=== PATIENT | female | born 1940 | race American Indian/Alaskan Native ===

== ENCOUNTER 2018-12-28 11:46 | Day surgery (SDC) | payer MEDICARE ==
[2018-12-28] MEDS ORDERED: DIPRIVAN 10 MG/ML IV ONE (12:11)
--- NOTE | 2018-12-28 12:26 | Anesthesia Day of Surgery ---
Anesthesia Day of Surgery - Day of Surgery Patient Examined: Yes Patient H&P Reviewed: Yes Patient is NPO: Yes
--- NOTE | 2018-12-28 12:26 | Anesthesia Consultation ---
Anesthesia Consult and Med Hx Date of service: 12/28/18 - Airway Anesthetic Teeth Evaluation: Edentulous ROM Head & Neck: Inadequate Mental/Hyoid Distance: Inadequate Mallampati Class: Class III Intubation Access Assessment: Possibly Difficult - Pulmonary Exam CTA: Yes - Cardiac Exam Cardiac Exam: RRR - Pre-Operative Health Status ASA Pre-Surgery Classification: ASA4 Proposed Anesthetic Plan: MAC - Pulmonary Hx Smoking: Yes (FORMER SMOKER) Hx Respiratory Symptoms: No Home Oxygen Therapy: Yes (2L) - Cardiovascular System Hx Hypertension: Yes Hx Coronary Artery Disease: Yes (s/p stents 2009) Hx Cardia Arrhythmia: Yes (a-fib) - Central Nervous System CVA: No - Gastrointestinal Hx Gastroesophageal Reflux Disease: No - Endocrine Hx Renal Disease: No Hx Liver Disease: No Hx Non-Insulin Dependent Diabetes: Yes Hx Hypothyroidism: Yes - Hematic Hx Anemia: Yes - Other Systems Hx Obesity: Yes - Additional Comments Anesthesia Medical History Comments: Last dose ASA 12/27. Last dose coumadin 12/07. No hx anesthetic complications. Anesthesia consent obtained from family at bedside. PEG placement for poor PO intake.
[2018-12-28] MEDS ORDERED: TRIPLE ANTIBIOTIC TP ONE (12:59)
[2018-12-28] MEDS ORDERED: XYLOCAINE MPF 2% ONE (13:00)
[2018-12-28] MEDS ORDERED: ANCEF/STERILE WATER 2 GM/20 ML 2 GM/20 ML SYRINGE IV ONE (13:04)
[2018-12-28] MEDS ORDERED: SUBLIMAZE IV ONE (13:24)
[2018-12-28] MEDS ORDERED: ANCEF/STERILE WATER 2 GM/20 ML IV ONE (13:30)
[2018-12-28] MEDS ORDERED: ANCEF/STERILE WATER 2 GM/20 ML 2 GM/20 ML SYRINGE IV NR (13:41)
[2018-12-28] MEDS ORDERED: NACL 0.9% 1000 ML 1,000 ML IV SCH (13:41)
--- NOTE | 2018-12-28 13:49 | Operative Report ---
Operative Report Operative Report: Operative Report: Date of procedure: 12/28/2018 Procedure: Esophagogastroduodenoscopy with percutaneous endoscopic gastrostomy tube placement. Attending physician: Con Olea M.D. Hydrogen Braze Furnace Operator: Con Olea M.D. Indication: Patient is an 78-year-old female who presented with a history of dementia oropharyngeal dysphagia, altered mental status poor oral intake and weight loss. Patient is moderately malnourished. An upper endoscopy is done to place a percutaneous endoscopic gastrostomy tube for enteral feeding and administration of medications. Consent: Informed consent was obtained after advising the patient and family regarding nature of this procedure, its indications, potential benefits as well as possible complications including but not limited to bleeding perforation and adverse reaction to medication, infection as well as other cardiopulmonary complications. An informed written and verbal consent was then obtained after due opportunity was provided for questions and answers. Monitoring: Patient was monitored continuously with pulse oximetry and electrocardiographic recordings as well as blood pressure recordings. Vital signs remained stable throughout this procedure with no untoward events. Preoperative assessment: Patient was assessed immediately prior to this procedure for capacity to tolerate monitored anesthesia care and moderate sedation as well as general anesthesia. Patient's ASA classification is 3, Mallampati class is 2, Hyomental distance is 3. Instrument: Olympus video endoscope.GIF HQ 190L 20 Upper [place] percutaneous endoscopic gastrostomy tube kit Medications: Propofol given intravenously in divided doses. For details please refer to anesthesia records. Ancef 2 g given intravenously immediately prior to beginning of procedure 1% lidocaine for local infiltration of the skin. Description of procedure: Patient was placed in a supine position after achieving sedation, the endoscope was introduced into the esophagus under direct vision. It was then advanced beyond the esophagus into the stomach and then beyond the stomach into the duodenum and to the second portion of the duodenum. It was subsequently withdrawn with careful inspection of all mucosal surfaces . Subsequently, a precise location for the placement of the percutaneous endoscopic gastrostomy tube was identified using direct light transillumination and one-to-one finger indentation. Following this, a 20 Upper [place] percutaneous endoscopic gastrostomy tube was successfully placed using the Ponsky pull- through method. The following endoscopic findings were noted. Findings: Esophagus; patient had mild mid esophageal stricture. It was mildly luminally occluding however endoscope could pass with some difficulty, the percutaneous endoscopic gastrostomy tube internal bumper was able to pass through. There was a hiatal hernia seen on entry into the stomach. There was mild erythema in the gastric antrum. A 20 Upper [place] percutaneous endoscopic gastrostomy tube was successfully placed. The duodenum was normal to the second portion. Impression: Mild meat esophageal stricture. Hiatal hernia. Esophagogastroduodenoscopy with successful placement of a 20 Upper [place] percutaneous endoscopic gastrostomy tube. Plan: The tube site is currently at 3.0 cm. It should be cleaned daily with Betadine and peroxide. Triple Antibiotic should be applied daily to the site with dry gauze dressing a for at least 2-3 weeks. The tube site should be carefully inspected daily for any redness or discharge. The tube should be flushed with 100 mL of water every 6 hours. The tube should also be flushed additionally after administration medications or after completing a feeding session. Tube may be used for enteral feeding after 6 hours. The tube however may be used immediately for administration of medications. If the tube is accidentally dislodged, a logger driving horses should be notified immediately. After 6 hours, the tube may be used for enteral feeding. The advice however and recommendation is to begin tube feeding at a slow rate of 30 mL per hour and gradually increase as may be instructed after 8 hours. Residuals from the feeding tube should be checked every 3 hours for at least 24-36 hours. If patient tolerates feeding, the feeding volume should be optimized as may advised by the dietitian. If patient has high residuals, then caution should be used in increasing the feeding rate to avoid aspiration. The head of the bed should be kept at 30 always.
--- NOTE | 2018-12-28 13:50 | Discharge Summary ---
Short Stay Discharge Plan Activity: fall precautions Weight Bearing Status: Non-Weight Bearing Diet: other (See tube feeding instructions) Follow up with: JAVON FRANKEL MD [Other] - 7 Days
[2018-12-28 14:53] VITALS: BP 130/49
--- NOTE | 2018-12-28 19:07 | Post Anesthesia Evaluation ---
- Post Anesthesia Evaluation Patient Participated: Yes Airway Patent: Yes Stable Respiratory Function: Yes Nausea/Vomiting: No Temp > 96.8F: Yes Pain Manageable: Yes Adequeate Hydration: Yes Anesthesia Complications: No Block Receding Appropriately: Not Applicable Patient on Ventilator: No
== END 2018-12-28 11:47 | disposition home or self-care (01) ==
LOC: GIO 11:46
PROVIDERS: ATTEND Internal Medicine Gastroenterology
DX: R13.12 Dysphagia, oropharyngeal phase (principal); R63.3 Feeding difficulties; R63.4 Abnormal weight loss; K22.2 Esophageal obstruction; K44.9 Diaphragmatic hernia without obstruction or gangrene; I42.9 Cardiomyopathy, unspecified; I25.10 Atherosclerotic heart disease of native coronary artery without angina pectoris; I10 Essential (primary) hypertension; E66.9 Obesity, unspecified; E11.9 Type 2 diabetes mellitus without complications; E03.9 Hypothyroidism, unspecified; Z79.82 Long term (current) use of aspirin; Z79.899 Other long term (current) drug therapy; Z87.891 Personal history of nicotine dependence; Z98.890 Other specified postprocedural states; Z86.2 Personal history of diseases of the blood and blood-forming organs and certain disorders involving the immune mechanism
CPT/HCPCS: 43246; 82962; 96365; J0690; J2704; J3010; J7030; A6250